=== PATIENT | female | born 2000 | race Caucasian/White ===

== ENCOUNTER 2025-09-02 01:46 | Emergency (ER) | payer OTHER, SELFPAY ==
[2025-09-02 01:52] VITALS: BP 124/79
[2025-09-02 02:20] LABS: Urine Character Clear (Clear)
[2025-09-02 02:22] LABS: Hematocrit 37.9 % (37.0-47.0); Hemoglobin 12.5 g/dL (12.0-16.0); Mean Corp Hgb Conc. 33.0 g/dL (33.0-37.0); Mean Corpuscular Volume 89.8 fL (81.0-99.0); Nucleated Red Blood Cells % 0 %; Platelet Count 240 10^3/uL (130-400); Red Cell Dist. Width 12.5 % (11.5-14.5)
[2025-09-02 02:26] LABS: Urine Red Blood Cell 0-2 /HPF (0-2); Urine Squamous Cell 0-2 /LPF (Few)
[2025-09-02 02:51] LABS: HCG, Serum Qualitative Screen Negative
[2025-09-02 02:53] LABS: ALT (SGPT) 14 U/L (0-35); AST (SGOT) 16 U/L (14-36); Albumin 4.4 g/dl (3.5-5.0); Alkaline Phosphatase 47 U/L (38-126); Blood Urea Nitrogen 18 mg/dl (7-17); Calcium 9.7 mg/dl (8.4-10.2); Carbon Dioxide 25 mmol/L (22-30); Chloride 107 mmol/L (98-107); Glucose 88 mg/dl (70-99); Lipase 114 U/L (23-300); Potassium 4.1 mmol/L (3.5-5.1); Sodium 139 mmol/L (135-145); Total Protein 7.1 g/dl (6.3-8.2); eGFR > 60.00
[2025-09-02 02:56] VITALS: BMI 29.3
[2025-09-02 06:02] VITALS: BP 95/49
--- NOTE | 2025-09-02 07:26 | ED.GENMED ---
History of Present Illness
General
Chief Complaint: Abdominal Symptoms
Source: patient
Time Seen by Provider: 09/02/25 07:05
History of Present Illness
History of Present Illness:
25-year-old female with past medical history of ADHD, anxiety and depression presenting to the emergency department for evaluation of right lower quadrant abdominal pain that has been ongoing and worsening over the last 3 weeks associated with
urinary frequency and slightly diminished p.o. intake but no other symptoms otherwise. Patient did state that she had her menstrual at the beginning of the symptoms and that she had some breakthrough spotting after her menstrual finished but this
has since resolved. She went to [facility] 2 weeks ago and was recommended to have an outpatient ultrasound done, this was scheduled but not for another week and a half. Due to the worsening pain patient decided to come to the ER for
further evaluation. Denies any fevers, chills, rigors, nausea or vomiting, bowel changes, back or flank pain or any other concerns. No history of similar. Social history noncontributory.
Past History
Past History
ED Past Medical History: Asthma, Psychiatric (Anxiety, depression, ADHD, history of self injury) and Other (Eating disorder, anorexia, bulimia)
ED Past Surgical History: Tonsilectomy
Social History
Tobacco: Smoker
Alcohol: None
Drug: Marijuana
Personal: Single
Living: with family
Employment: Employed
Family History
Family History: Other (Noncontributory)
Review of Systems
Review of Systems
All Other Systems: ROS reviewed and negative except as documented in HPI and ROS
Phy Exam
Physical Exam
Physical Exam:
GENERAL: Alert , in no apparent distress
EYE: clear conjunctiva b/l
HEAD: NCAT
ENT: o/p clr, mmm.
CARDIAC: Regular rate and rhythm .
LUNGS: Clear breath sounds bilaterally, no acute respiratory distress, no wheezes/rales/rhonchi
ABDOMEN: Soft, mild tenderness within the right lower quadrant, no r/g, no cvat, negative Motley sign, no tenderness at McBurney's point
NEUROLOGICAL: Alert and oriented
SKIN: Warm and dry, skin intact.
MUSCULOSKELETAL: well perfused.
PSYCH: Normal and appropriate interaction.
Scores
Heart Failure Risk
Heart Failure Risk Score: Not Applicable
Heart Score for Chest Pain Patients
STEMI patient?: Not applicable
Withdrawal Assessment of Alcohol
Withdrawal Assessment Completed?: Not applicable
Course
Orders/Labs/Results
Orders:
Orders
09/02/25 01:58
IV Insert/Care/Rem.- Treatment PRN
09/02/25 01:59
Test Result ONCE
09/02/25 02:11
Complete Blood Count/With Diff Urgent
Comprehensive Metabolic Panel Urgent
HCG, Serum Qualitative Screen Urgent
Comment: .
Lipase Urgent
Urinalysis Reflex To Culture Urgent
Date Specimen was Collected: 09/02/25
Time Specimen was Collected: 01:58
Urine Microscopic Reflex Cult Urgent
Urine Culture Urgent
MICHAELA Source: U
Specimen Description:
Date Specimen was Collected: 09/02/25
Time Specimen was Collected: 01:58
09/02/25 07:15
CT Abd/pel W Iv And Oral Contr Urgent
Comment:
Reason For Exam: RLQ pain
Iohexol [Omnipaque] See Protocol PO NOW STA
Ketorolac [Toradol] 30 mg IV NOW STA
US Pelvis W Transvag Combined Urgent
Reason For Exam: right sided abd pain
Abnormal Lab Results
09/02/25
02:11
WBC 11.8 H 10^3/uL
(4.8-10.8)
MPV 10.6 H fL
(7.4-10.4)
Absolute Neuts (auto) 6.7 H 10^3/uL
(1.4-6.5)
Absolute Lymphs (auto) 3.9 H 10^3/uL
(1.2-3.4)
Absolute Monos (auto) 0.9 H 10^3/uL
(0.1-0.6)
BUN 18 H mg/dl
(7-17)
Leukocyte Esterase Rfl 1+ A
(Negative)
09/02/25 02:11
09/02/25 02:11
Vital Signs
Initial and Last Documented VS:
Initial Vital Signs
Temp Pulse Resp BP Pulse Ox
98.2 F 61 20 124/79 94
09/02/25 01:52 09/02/25 01:52 09/02/25 01:52 09/02/25 01:52 09/02/25 01:52
Last Documented Vital Signs
Temp Pulse Resp BP Pulse Ox
98.2 F 75 14 95/49 98
09/02/25 01:52 09/02/25 06:04 09/02/25 06:04 09/02/25 06:02 09/02/25 07:30
MDM/Problems Addressed
Differential Diagnosis Includes:
Appendicitis
Ovarian cyst
Colitis
Urinary tract infection
Renal/ureteral colic
Pancreatitis
Cholecystitis
MDM/Problems Addressed:
25-year-old female presenting to the ER for 3 weeks of right lower quadrant abdominal pain, pain worsening during this time. Initially went to [facility] where she was recommended to have an ultrasound, unfortunately has been unable to get
the ultrasound, scheduled for September 11. Labs and been initiated on arrival which do show a leukocytosis of 11,000 but otherwise unremarkable chemistry and urine. Patient still with pain, will treat with Toradol. I did order both ultrasound and
CT imaging. Disposition pending
*Radiology
Radiology exam reviewed: radiology read reviewed
*Pulse Oximetry
SaO2: 98
Oxygen Mode of Delivery: Room air
Patient hypoxic: no
*Critical Care Note
Total Time (30-74mins, 75-104mins- exclusive of procedures): Not Applicable
Patient Management
Escalation/DeEscalation of care consider admission/obs:
Both the ultrasound and CT scan showed no acute intra-abdominal pathologies. Patient did note relief with Toradol. At this time no clear etiology for patient's symptoms however I do not suspect any emergent pathology. Patient stable for discharge
home and outpatient follow-up. Aware of return precautions to the ER.
ED Attending Note
-
Portions of this chart may have been created with voice recognition software.� Occasional wrong word or��sound alike� substitutions may have occurred due to the inherent limitations of voice recognition software.
Discharge Plan
Departure
Patient Disposition: Home (Routine Discharge)
Date of Disposition: 09/02/25
Time of Disposition: 11:21
Patient with high blood pressure during this ER visit?: No
Discharge Problem:
Abdominal pain
Instructions: Abdominal Pain
Prescriptions:
No Action
cyclobenzaprine 10 MG tablet
10 mg PO TIDPRN PRN (Reason: spasm) Qty: 9 0RF
ibuprofen 600 MG tablet
600 mg PO Q6HPRN PRN (Reason: pain) Qty: 12 0RF
prednisone 20 mg tablet
40 mg PO DAILY Qty: 10 0RF
albuterol sulfate [ProAir HFA] 90 mcg/actuation HFA aerosol inhaler
2 puff inhalation Q4HPRN PRN (Reason: shortness of breath) Qty: 8.5 0RF
cyclobenzaprine 10 mg tablet
10 mg PO Q8H PRN (Reason: muscle spasm) Qty: 10 0RF
Referrals:
UNKNOWN - PT DOES,NOT KNOW [Family Provider]
Interventions
Interventions:
*Risk Screen - Suicide Last Done: 09/02/25 01:52
*General Assessment Last Done: 09/02/25 01:52
*Neglect/Abuse Screening Last Done: 09/02/25 01:52
*ED- Fall Risk Assessment Last Done: 09/02/25 01:52
*ED COVID-19 Vaccine History Last Done: 09/02/25 01:52
*ED Influenza Vaccine History Last Done: 09/02/25 01:52
*Nursing Disposition Last Done: 09/02/25 11:36
[facility]Zepkp[facility] Assessment Last Done: 09/02/25 02:59
Discharge Date and Time
Discharge Date/Time: 09/02/25 11:36
Print Language: NIUEAN
[2025-09-02] MEDS: TORADOL 30 MG IV (07:47)
[2025-09-02] MEDS: OMNIPAQUE 50 ML PO (07:47)
== END 2025-09-02 11:36 | disposition home or self-care (01) ==
LOC: EMR 01:46
PROVIDERS: Student in an Organized Health Care Education/Training Program; EMERGENCY PHYSICIAN Student in an Organized Health Care Education/Training Program
DX: R10.31 Right lower quadrant pain (principal); D72.829 Elevated white blood cell count, unspecified; J45.909 Unspecified asthma, uncomplicated; F17.200 Nicotine dependence, unspecified, uncomplicated
CPT/HCPCS: 96374; 99284; 74177; 76830; 76856; 80053; 81003; 81015; 83690; 84703; 85025; 87086; Q9967